=== PATIENT | male | born 1990 | race Two or more races ===

== ENCOUNTER 2019-07-26 18:40 | Emergency (ER) | payer SELFPAY ==
[~2019-07-26] VITALS: Ht 177.8 cm; Wt 100.7 kg
[2019-07-26 18:54] VITALS: BP 140/83; Ht 177.8 cm; Wt 100.7 kg
== END 2019-07-26 21:51 | disposition left against medical advice (07) ==
LOC: ED 18:40
DX: Z53.21 Procedure and treatment not carried out due to patient leaving prior to being seen by health care provider (principal)

== ENCOUNTER 2019-07-27 08:22 | Emergency (ER) | payer BC ==
[~2019-07-27] VITALS: Ht 177.8 cm; Wt 99.8 kg
[2019-07-27 08:30] VITALS: Ht 177.8 cm; Wt 99.8 kg
[2019-07-27 09:14] LABS: BASOPHIL % 0.3 % (0-2); PLATELET COUNT 199 x10^3mcL (130-400); RED CELL DISTRIBUTION WIDTH 12.6 % (11.5-14.5)
[2019-07-27 09:46] LABS: CALCIUM 9.7 mg/dL (8.5-10.1); CARBON DIOXIDE 23.9 mmol/L (21-32); CHLORIDE SERUM 101 mmol/L (98-107); GFR1 > 60 mL/min; GLUCOSE SERUM 106 mg/dL (74-106); POTASSIUM SERUM 3.9 mmol/L (3.5-5.1); SODIUM SERUM 137 mmol/L (136-145)
[2019-07-27 09:51] LABS: ALBUMIN 4.7 g/dL (3.4-5.0); ALKALINE PHOSPHATASE 75 U/L (46-116); ALT/SGPT 43 U/L (16-63); AST/SGOT 23 U/L (15-37); BILIRUBIN TOTAL 1.3 mg/dL (0.20-1.00)
[2019-07-27 10:36] LABS: AMPHETAMINE QUAL UR POSITIVE (See below)
[2019-07-27 11:19] VITALS: BP 129/85
== END 2019-07-27 11:19 | disposition home or self-care (01) ==
LOC: ED 08:22
PROVIDERS: Emergency Medicine
DX: R07.89 Other chest pain (principal); F15.10 Other stimulant abuse, uncomplicated
CPT/HCPCS: 36415; Q0092